=== PATIENT | male | born 1985 | race Caucasian/White ===

== ENCOUNTER 2017-07-07 21:29 | Inpatient (IN) | payer OTHER ==
[~2017-07-07] VITALS: Ht 182.8 cm; Wt 86.4 kg
--- NOTE | ~2017-07-07 | PR ---
[place], [place] PROGRESS NOTE NAME: WILIAN MAXWELL UNIT #: [id number] ROOM: 511 DOCTOR: TOBY WRIGHT MD,GERONIMO BIRTHDATE: [birth year] DOS: 07/09/2017 SUBJECTIVE: He has been noted comfortable at this time, sitting on the chair, noted fully awake and alert. Denies symptoms of chest pain or any hemoptysis. OBJECTIVE: VITAL SIGNS: For the patient, which has been recorded showed the temperature noted as normal. The respiratory rate of the patient was recorded as 20, heart rate of 125, and blood pressure 130/61. HEENT: Examination shows head was atraumatic. Eyes nonicterus. NECK: Supple. CARDIOVASCULAR: S1, S2 is audible. LUNGS: Noted with free of any wheezing or crackles. ABDOMEN: Soft and nontender. EXTREMITIES: Without any acute edema. IMPRESSION: The patient who has been currently noted with sinus tachycardia related to drug withdrawal, the reasons unknown. Resolution of acute exacerbation of bronchial asthma has been noted. Possible chronic obstructive pulmonary disease as well. PLAN OF MANAGEMENT: A 6-minute walk test performed to assess the patient need of home oxygen. Consider possible home discharge and followup by the primary head of quality. GERONIMO LUIS MD CM:PNTRANS [id number] GERONIMO WRIGHT MD 07/09/172033 interface
--- NOTE | ~2017-07-07 | CON ---
[place], [place] REPORT OF CONSULTATION NAME: WILIAN MAXWELL UNIT #: [id number] ROOM: 511 DOCTOR: TOBY WRIGHT MDGERONIMO BIRTHDATE: [birth year] DOS: 07/08/2017 CONSULTATION REQUEST BY: Hospitalist service. REASON FOR CONSULTATION: For assessment of the current abnormal respiratory symptoms. HISTORY OF PRESENT ILLNESS: This is a 31-year-old white male patient who was admitted to the hospital under the hospitalist care on 07/07/2017. The history was noted quite limited for the patient and the patient did seem to have a very limited understanding the problem and poor historian in general. Some of the history was also reviewed of the patient, which were taken by the attending physician and the history component. However, this is a 31-year-old white male who has been presented to the Emergency Room and reported symptoms of having increased shortness of breath, which was occurring for the patient for the past 24 hours or longer. He stated that he has been overdoing his treatment and taking several ____ treatment to help resolve the symptoms. The symptoms did not improve, urging him to come to the hospital. The patient came into the hospital. The patient denies any symptoms of chest pain with that. He does have some cough, but there was no sputum expectoration, also reported some symptoms of wheezing. The patient stated that he has an oxygen machine, which was broken and not working for the past several days. He was denying any symptoms of hemoptysis or any chest pain. Remaining systems were reviewed, they were noted all negative. PAST MEDICAL HISTORY: 1. History of pulmonary embolism, not on any long-term anticoagulants at the present time. 2. History of obstructive sleep apnea disorder treated with the CPAP per patient. 3. General anxiety and depression. 4. History of chronic obstructive pulmonary disease was also reported by the patient. 5. History of hiatal hernia. PAST SURGICAL HISTORY 1. EGD and colonoscopy. 2. Excision of the skin of the hand. SOCIAL HISTORY: The patient stated he is single, not , has been known with history of tobacco use, pack of cigarettes per day, reported to the attending of admission for 10 years, but told me that he only smoked for 1 year of cigarettes. The patient has been noted with occasional recreational use of marijuana. The patient has been noted with dependency on pain medication, Vicodin, currently taking Suboxone. 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 FAMILY HISTORY: Reported patient's father 56-year-old with history of diabetes mellitus type 2. Mother 44-year-old from complication related to the alcoholism. [place], [place] REPORT OF CONSULTATION NAME: WILIAN MAXWELL UNIT #: [id number] ROOM: 511 DOCTOR: GERONIMO [place] MD BIRTHDATE: [birth year] HOME MEDICATIONS: Reported with the patient use of amoxicillin, Xanax, albuterol, Suboxone, omeprazole, sertraline, nebulized bronchodilators as Albuterol sulfate. The patient also stated he has been previously taking the Asmanex twisthaler, but has not been taking the medication for the past several days as he ran out of the prescription. DRUG ALLERGY HISTORY: The patient was reported as no known drug allergies. PHYSICAL EXAMINATION: GENERAL: This is a 31-year-old white male who has been currently sitting on his bed without any acute distress at this time, using oxygen supplementation nasal cannula, has been previously treated with the BiPAP in the Emergency Room later on after admission. He has been comfortably resting. Height was recorded as 6 feet, weight of 190 pounds, BMI 25.8. VITAL SIGNS: Normal temperature, respiratory on admission, currently noted 20, heart rate 130-118 with sinus tachycardia, blood pressure 102/56-130/94. Pulse ox saturation on 3 liters cannula this morning was 97% saturation. HEENT: Head was atraumatic. Eyes nonicterus. NECK: Supple. CARDIOVASCULAR: S1, S2 is audible. LUNGS: Noted with moderate reduction of the breath sounds were noted in the lungs bilaterally. There was no active wheezing present at this time. There were no crackles. ABDOMEN: Soft, nontender. EXTREMITIES: Without any acute edema. SKIN: Visible skin. No areas of rashes or lesions. CENTRAL NERVOUS SYSTEM: Cranial nerves II-XII intact. SKIN: No focal deficit. MUSCULOSKELETAL: No gross deformities. LABORATORY DATA: CBC yesterday, WBC count 10.7, hemoglobin 13, hematocrit was normal. Platelet count normal, 13.3% eosinophils were noted. The pH was noted 7.19, pCO2 of 61.7, pO2 of 109 on 70% oxygen with the use of the BiPAP. Arterial blood gas that was done subsequently at midnight for the patient, pH of 7.31, pCO2 of 54, pO2 of 72.6 on 3 liter nasal cannula. Lactic acid was 5.8, follow up 2.6 and variably elevated at different levels. Troponin for this patient, which was done yesterday and this morning all noted as normal. Urine drug screen positive for the benzodiazepines. PT/PTT normal this morning. CBC this morning, hemoglobin 11.3, hematocrit 39.0, WBC count and platelet count normal. CMP of the patient with glucose 156, BUN normal, creatinine was normal. The chest x-ray of the patient that was done on admission was reviewed one-view, does not show any active cardiopulmonary disease. Mild hyperinflation was noted. CTA of the chest was also reviewed for the patient personally, it does not show any evidence of pulmonary embolism. There was no pulmonary infiltration noted, abnormal pulmonary nodules or changes of centrilobular emphysema. IMPRESSION: 1. The patient who has been currently admitted to the hospital noted with acute [place], [place] REPORT OF CONSULTATION NAME: WILIAN MAXWELL UNIT #: [id number] ROOM: 511 DOCTOR: TOBY WRIGHT MD,[facility] BIRTHDATE: [birth year] hypercapnic respiratory failure with possibility of hypoxia as well. 2. Presumed history of past chronic hypoxic respiratory failure, use of oxygen supplementation per patient. 3. Obstructive sleep apnea disorder. 4. Past history of tobacco use. 5. Presumed history of chronic obstructive pulmonary disease. 6. Eosinophilia, most likely related to bronchial asthma than chronic obstructive pulmonary disease exacerbation is very likely. There was no evidence of acute pneumonia noted radiologically. Possibility of viral bronchitis for the patient may be causing exacerbation or other allergies causing exacerbation of bronchial asthma would be considered. PLAN OF THERAPY: The patient would be continued on the corticosteroids. Also, he continued use the BiPAP, hypercapnic respiratory failure at nighttime and p.r.n. during the day. Oxygen supplementation to maintain a pulse ox saturation 92% or greater. Monitor labs closely. Bronchodilators to be continued as well for this patient every 4 hours. Monitor the progression of the respiratory status of the patient closely. At this time, no major change in treatment needs to be done whatever has been started for this patient at this time. All the medication seems to be effective and resolving. The pulmonary symptoms and exacerbation of bronchial asthma. Other supportive therapy, plan of management to be continued. Additional treatment changes will be ordered for the patient based on the progression of the illness. GERONIMO LUIS MD CM:CONSTR:REPORT OF CONSULTATION 1455 07/09/17 0137 interface
--- NOTE | ~2017-07-07 | EKG ---
[place], [place] ELECTROCARDIOGRAM REPORT NAME: WILIAN MAXWELL UNIT #: [id number] ROOM: 511 DOCTOR: TOBY WRIGHT MD,GERONIMO BIRTHDATE: [birth year] DOS: 07/09/2017 Electrocardiogram shows sinus tachycardia with heart rate of 125 beats per minute. GERONIMO LUIS MD CM:EKGRPT:ELECTROCARDIOGRAM REPORT [id number] GERONIMO WRIGHT MD
[~2017-07-07 21:29] MED LIST: AMOXICILLIN500 MG PO; AUGMENTIN 875 M1 TAB PO; CATAFLAM50 MG PO; CLEOCIN150 MG PO; DICLOFENAC POTA50 MG PO; HYDROCODONE BIT1 T11 PO; MOTRIN800 MG PO; PEN-VEE K500 MG PO; SUDAFED60 M1 PO; XANAX0.5 MG PO
[2017-07-07 21:33] VITALS: BP 130/94
[2017-07-07 21:53] LABS: ABG HCO3 23.3 mmol/l (22-26); ABG O2 SATURATION 99.5 % (95-97); ARTERIAL BLOOD GAS PCO2 61.7 mmHg (35-45); ARTERIAL BLOOD GAS PH 7.199 (7.35-7.45)
[2017-07-07 21:53] LABS: BASO # 0.1 10*3/uL (0.0-0.1); BASO % 1.3 % (0.0-1.0); EOS # 1.4 10*3/uL (0.0-0.4); EOS % 13.3 % (1.0-4.0); HEMATOCRIT 44.6 % (42.0-52.0); LYMPH # 4.5 10*3/uL (1.3-4.4); LYMPH % 41.7 % (27.0-41.0); MEAN CELL VOLUME 83.8 fl (80.0-94.0); MEAN CORPUSCULAR HGB 24.4 pg (27.0-31.0); MEAN CORPUSCULAR HGB CONC 29.1 g/dl (33.0-37.0); MEAN PLATELET VOLUME 10.1 fl (9.6-12.3); MONO # 0.9 10*3/uL (0.1-1.0); NEUT # 3.8 10*3/uL (2.3-7.9); NEUT % 35.2 % (47.0-73.0); PLATELET COUNT AUTOMATED 388 10*3/uL (130-400); RED BLOOD COUNT 5.32 10*6/uL (4.50-5.90); RED CELL DISTRI WIDTH 13.8 % (0-14.5); WHITE BLOOD COUNT 10.7 10*3/uL (4.8-10.8)
[2017-07-07 21:54] LABS: ABG BASE EXCESS -5.3 mmol/L (-2.0-2.0)
[2017-07-07 22:14] LABS: ALBUMIN 3.9 gm/dl (3.1-4.5); ALKALINE PHOSPHATASE 57 U/L (45-117); BUN 16 mg/dl (7-24); CHLORIDE 101 mmol/L (98-107); CREATININE 1.07 mg/dL (0.70-1.30); POTASSIUM 4.2 mmol/L (3.5-5.1); SGOT/AST 13 IU/L (3-35); SGPT/ALT 15 U/L (12-78); SODIUM 141 mmol/L (136-145); TOTAL PROTEIN 7.5 gm/dL (6.4-8.2)
[2017-07-07 22:27] VITALS: BP 104/71
[2017-07-07] MEDS ORDERED: ZOLOFT100 MG PO (22:41)
[2017-07-07] MEDS ORDERED: BUPRENORPHINE HY8 MG PO (22:43)
[2017-07-07] MEDS ORDERED: OMEPRAZOLE D/R20 MG PO (22:45)
[2017-07-07] MEDS ORDERED: PROVENTIL HFA6.7 GM INH (22:46)
[2017-07-07 23:10] VITALS: BP 114/62
[2017-07-08 00:56] LABS: ABG BASE EXCESS 0.2 mmol/L (-2.0-2.0); ABG HCO3 26.5 mmol/l (22-26); ABG O2 SATURATION 93.1 % (95-97); ARTERIAL BLOOD GAS PCO2 54.3 mmHg (35-45); ARTERIAL BLOOD GAS PH 7.31 (7.35-7.45); ARTERIAL BLOOD GAS PO2 72.6 mmHg (80-90)
[2017-07-08 03:28] LABS: BILIRUBIN NEGATIVE (NEGATIVE); BLOOD NEGATIVE (NEGATIVE); CLARITY CLEAR (CLEAR); COLOR YELLOW (YELLOW); GLUCOSE NEGATIVE (NEGATIVE); KETONE NEGATIVE (NEGATIVE); LEUKO ESTERASE NEGATIVE (NEGATIVE); NITRITE NEGATIVE (NEGATIVE); PH 5.5 (5.0-9.0); SPECIFIC GRAVITY >= 1.030 (1.005-1.030); UROBILINOGEN 0.2 E.U./dl (0.2-1.0)
[2017-07-08 03:37] LABS: URINE AMPHETAMINES < 1000 (1000ng/ml); URINE BARBITURATES < 200 (200ng/ml); URINE BENZODIAZEPINES > 200 (200ng/ml); URINE CANNABINOIDS (THC) < 50 (50ng/ml); URINE COCAINE < 300 (300ng/ml); URINE METHADONE < 300 (300ng/ml); URINE OPIATES < 300 (300ng/ml)
[2017-07-08 03:41] LABS: URINE PHENCYCLIDINE < 25 (25ng/ml)
[2017-07-08 03:53] LABS: BACTERIA TRACE
[2017-07-08 06:39] LABS: BASO % 0.2 % (0.0-1.0); EOS % 0.3 % (1.0-4.0); HEMOGLOBIN 11.3 g/dl (14.0-18.0); LYMPH # 0.9 10*3/uL (1.3-4.4); LYMPH % 8.9 % (27.0-41.0); MEAN CELL VOLUME 83.2 fl (80.0-94.0); MEAN CORPUSCULAR HGB 24.1 pg (27.0-31.0); MEAN PLATELET VOLUME 10.4 fl (9.6-12.3); MONO # 0.1 10*3/uL (0.1-1.0); MONO % 0.5 % (3.0-9.0); NEUT # 9.5 10*3/uL (2.3-7.9); NEUT % 89.6 % (47.0-73.0); PLATELET COUNT AUTOMATED 324 10*3/uL (130-400); RED BLOOD COUNT 4.69 10*6/uL (4.50-5.90); RED CELL DISTRI WIDTH 14.3 % (0-14.5); WHITE BLOOD COUNT 10.6 10*3/uL (4.8-10.8)
[2017-07-08 06:57] LABS: ALBUMIN 3.5 gm/dl (3.1-4.5); ALKALINE PHOSPHATASE 48 U/L (45-117); BUN 13 mg/dl (7-24); CHLORIDE 102 mmol/L (98-107); CHOLESTEROL 133 mg/dL (<200); CREATININE 1.21 mg/dL (0.70-1.30); HDL CHOLESTEROL 32 mg/dl (40-60); LDL CHOLESTEROL 89 mg/dL (9-159); PHOSPHOROUS 1.3 mg/dL (2.5-4.9); POTASSIUM 4.2 mmol/L (3.5-5.1); SGPT/ALT 15 U/L (12-78); SODIUM 138 mmol/L (136-145); TOTAL PROTEIN 7.2 gm/dL (6.4-8.2); TRIGLYCERIDES 59 mg/dl (<150); VLDL CHOLESTEROL 12 mg/dL (6-40)
[2017-07-08 07:03] LABS: THYROID STIM HORMONE (HS) 0.487 uIU/ml (0.358-4.75)
[2017-07-08 07:04] LABS: SGOT/AST 8 IU/L (3-35)
[2017-07-08 08:00] VITALS: BP 103/61
[2017-07-08 09:04] LABS: VITAMIN D, 25-HYDROXY 20.2 ng/mL (30-100)
[2017-07-08 12:00] VITALS: BP 102/56
[2017-07-08 16:00] VITALS: BP 111/64
[2017-07-08 20:00] VITALS: BP 116/74
[2017-07-09] VITALS: BP 102/56
[2017-07-09 06:12] LABS: BASO % 0.1 % (0.0-1.0); HEMATOCRIT 35.1 % (42.0-52.0); HEMOGLOBIN 10.5 g/dl (14.0-18.0); LYMPH % 8.9 % (27.0-41.0); MEAN CORPUSCULAR HGB 24.5 pg (27.0-31.0); MEAN CORPUSCULAR HGB CONC 29.9 g/dl (33.0-37.0); MEAN PLATELET VOLUME 10.4 fl (9.6-12.3); MONO % 4.4 % (3.0-9.0); NEUT # 19.1 10*3/uL (2.3-7.9); NEUT % 85.8 % (47.0-73.0); PLATELET COUNT AUTOMATED 355 10*3/uL (130-400); RED BLOOD COUNT 4.28 10*6/uL (4.50-5.90); RED CELL DISTRI WIDTH 14.6 % (0-14.5); WHITE BLOOD COUNT 22.3 10*3/uL (4.8-10.8)
[2017-07-09 06:43] LABS: ALBUMIN 3.5 gm/dl (3.1-4.5); CHLORIDE 107 mmol/L (98-107); POTASSIUM 4.9 mmol/L (3.5-5.1); SODIUM 141 mmol/L (136-145)
[2017-07-09 06:49] LABS: ALKALINE PHOSPHATASE 44 U/L (45-117); BUN 15 mg/dl (7-24); CREATININE 0.74 mg/dL (0.70-1.30); SGOT/AST 7 IU/L (3-35); SGPT/ALT 14 U/L (12-78); TOTAL PROTEIN 6.9 gm/dL (6.4-8.2)
[2017-07-09 08:00] VITALS: BP 107/59
[2017-07-09] MEDS ORDERED: VITAMIN D-32000 UNI1 PO (11:54)
[2017-07-09] MEDS ORDERED: DOXYCYCLINE100 M3 PO (11:54)
[2017-07-09] MEDS ORDERED: PREDNISONE10 MG PO (11:54)
[2017-07-09] MEDS ORDERED: VITAMIN D5000 UNI1 PO (11:59)
[2017-07-09 12:00] VITALS: BP 103/61
== END 2017-07-09 13:18 | disposition home or self-care (01) | DRG 871 ==
LOC: ED 21:29 → 5E 22:43
PROVIDERS: Emergency Medicine Emergency Medical Services; Internal Medicine; Internal Medicine Nephrology
PROC: 5A09357 Assistance with Respiratory Ventilation, Less than 24 Consecutive Hours, Continuous Positive Airway Pressure (ICD-10-PCS; principal; 2017-07-07)
DX: A41.9 Sepsis, unspecified organism (principal); J18.9 Pneumonia, unspecified organism; J96.01 Acute respiratory failure with hypoxia; E87.2 Acidosis; J96.02 Acute respiratory failure with hypercapnia; J44.0 Chronic obstructive pulmonary disease with (acute) lower respiratory infection; E83.41 Hypermagnesemia; J45.901 Unspecified asthma with (acute) exacerbation; J44.1 Chronic obstructive pulmonary disease with (acute) exacerbation; J98.11 Atelectasis; R65.20 Severe sepsis without septic shock; G47.33 Obstructive sleep apnea (adult) (pediatric); F32.9 Major depressive disorder, single episode, unspecified; D72.9 Disorder of white blood cells, unspecified; D72.810 Lymphocytopenia; D72.818 Other decreased white blood cell count; R73.9 Hyperglycemia, unspecified; E66.3 Overweight; K44.9 Diaphragmatic hernia without obstruction or gangrene; F41.1 Generalized anxiety disorder; D64.9 Anemia, unspecified; Z83.3 Family history of diabetes mellitus; Z81.1 Family history of alcohol abuse and dependence; Z99.81 Dependence on supplemental oxygen; Z86.711 Personal history of pulmonary embolism; Z87.891 Personal history of nicotine dependence; Z79.899 Other long term (current) drug therapy; Z86.718 Personal history of other venous thrombosis and embolism; Z68.25 Body mass index [BMI] 25.0-25.9, adult

== ENCOUNTER 2017-09-02 10:35 | Emergency (ER) | payer OTHER ==
[~2017-09-02] VITALS: Wt 86.2 kg
[~2017-09-02 10:35] MED LIST changes: +BUPRENORPHINE HY8 MG PO; +DOXYCYCLINE100 M3 PO; +OMEPRAZOLE D/R20 MG PO; +PREDNISONE10 MG PO; +PROVENTIL HFA6.7 GM INH; +VITAMIN D-32000 UNI1 PO; +VITAMIN D5000 UNI1 PO; +ZOLOFT100 MG PO
[2017-09-02 10:43] LABS: HEMOGLOBIN 11.3 g/dl (14.0-18.0); MEAN CELL VOLUME 81.1 fl (80.0-94.0); MEAN CORPUSCULAR HGB 23.5 pg (27.0-31.0); MEAN PLATELET VOLUME 9.9 fl (9.6-12.3); PLATELET COUNT AUTOMATED 374 10*3/uL (130-400); RED BLOOD COUNT 4.81 10*6/uL (4.50-5.90); RED CELL DISTRI WIDTH 15.1 % (0-14.5); WHITE BLOOD COUNT 9.7 10*3/uL (4.8-10.8)
[2017-09-02 10:59] LABS: ALBUMIN 4.1 gm/dl (3.1-4.5); ALKALINE PHOSPHATASE 51 U/L (45-117); BUN 12 mg/dl (7-24); CHLORIDE 105 mmol/L (98-107); CREATININE 0.95 mg/dL (0.70-1.30); POTASSIUM 4.2 mmol/L (3.5-5.1); SGOT/AST 13 IU/L (3-35); SGPT/ALT 16 U/L (12-78); SODIUM 141 mmol/L (136-145); TOTAL PROTEIN 7.5 gm/dL (6.4-8.2)
[2017-09-02 11:07] LABS: BASOPHILS 3 % (0-1); PLATELET SUFFICIENCY NORMAL (NORMAL); TOTAL CELLS COUNTED 100 #CELLS
[2017-09-02] MEDS ORDERED: DUONEB 3 MG/3 ML3 M1 INH (13:00)
== END 2017-09-02 13:57 | disposition home or self-care (01) ==
LOC: ED 10:35
PROVIDERS: Emergency Medicine
DX: J45.909 Unspecified asthma, uncomplicated (principal); J44.9 Chronic obstructive pulmonary disease, unspecified; Z79.899 Other long term (current) drug therapy; Z87.891 Personal history of nicotine dependence

== ENCOUNTER 2019-01-05 10:33 | Emergency (ER) | payer OTHER ==
[~2019-01-05] VITALS: Ht 180.3 cm; Wt 76.2 kg
--- NOTE | ~2019-01-05 | EKG ---
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
--- NOTE | ~2019-01-05 | EKG ---
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
[~2019-01-05 10:33] MED LIST changes: +DUONEB 3 MG/3 ML3 M1 INH
[2019-01-05 10:58] LABS: HEMATOCRIT 38.9 % (42.0-52.0); HEMOGLOBIN 10.6 g/dl (14.0-18.0); MEAN CELL VOLUME 74.7 fl (80.0-94.0); MEAN CORPUSCULAR HGB 20.3 pg (27.0-31.0); MEAN CORPUSCULAR HGB CONC 27.2 g/dl (33.0-37.0); PLATELET COUNT AUTOMATED 227 10*3/uL (130-400); RED BLOOD COUNT 5.21 10*6/uL (4.50-5.90)
[2019-01-05 11:00] LABS: ACT PARTIAL THROMBO TIME 20.2 SECONDS (20.0-32.1); INTERNATIONAL NORM RATIO 1.1 (2.0-3.5)
[2019-01-05 11:12] LABS: ALBUMIN 4.2 gm/dl (3.1-4.5); ALKALINE PHOSPHATASE 65 U/L (45-117); BASOPHILS 3 % (0-1); BUN 8 mg/dl (7-24); CHLORIDE 104 mmol/L (98-107); CREATININE 1.05 mg/dL (0.70-1.30); POTASSIUM 4.1 mmol/L (3.5-5.1); SGOT/AST 16 IU/L (3-35); SGPT/ALT 19 U/L (12-78); SODIUM 139 mmol/L (136-145); TOTAL CELLS COUNTED 100 #CELLS; TOTAL PROTEIN 7.9 gm/dL (6.4-8.2)
[2019-01-05 11:13] LABS: MICROCYTOSIS MODERATE; PLATELET SUFFICIENCY NORMAL (NORMAL); POLYCHROMASIA SLIGHT; SCHISTOCYTES FEW
[2019-01-05 11:15] LABS: OVALOCYTES MODERATE
[2019-01-05 11:16] LABS: TROPONIN I < 0.015 ng/ml (<0.045)
[2019-01-05 11:31] LABS: ABG BASE EXCESS 2.7 mmol/L (-2.0-2.0); ABG HCO3 28.1 mmol/l (22-26); ABG O2 SATURATION 91.7 % (95-97); ARTERIAL BLOOD GAS PCO2 49.1 mmHg (35-45); ARTERIAL BLOOD GAS PH 7.372 (7.35-7.45); ARTERIAL BLOOD GAS PO2 59.4 mmHg (80-90)
[2019-01-05] MEDS ORDERED: Ipratropium Brom3 ML INH (13:58)
[2019-01-05] MEDS ORDERED: MEDROL DOSEPAK4 MG PO (14:04)
== END 2019-01-05 14:13 | disposition home or self-care (01) ==
LOC: ED 10:33
PROVIDERS: Emergency Medicine
DX: J45.901 Unspecified asthma with (acute) exacerbation (principal); Z87.891 Personal history of nicotine dependence; Z79.899 Other long term (current) drug therapy; Z86.711 Personal history of pulmonary embolism

== ENCOUNTER 2019-03-14 12:10 | Inpatient (IN) | payer OTHER ==
[2019-03-14] VITALS (10 sets, daily range): BP systolic 101–145; BP diastolic 58–90
[~2019-03-14] VITALS: Ht 182.9 cm; Wt 74.6 kg
[~2019-03-14 12:10] MED LIST changes: +Ipratropium Brom3 ML INH; +MEDROL DOSEPAK4 MG PO
[2019-03-14 12:36] LABS: BASO # 0.1 10*3/uL (0.0-0.1); BASO % 0.8 % (0.0-1.0); EOS # 1.6 10*3/uL (0.0-0.4); HEMATOCRIT 49.7 % (42.0-52.0); HEMOGLOBIN 14.9 g/dl (14.0-18.0); LYMPH # 2.7 10*3/uL (1.3-4.4); LYMPH % 15.3 % (27.0-41.0); MEAN CELL VOLUME 90.7 fl (80.0-94.0); MEAN CORPUSCULAR HGB 27.2 pg (27.0-31.0); MEAN PLATELET VOLUME 9.1 fl (9.6-12.3); MONO # 1.2 10*3/uL (0.1-1.0); MONO % 7.1 % (3.0-9.0); NEUT # 11.7 10*3/uL (2.3-7.9); NEUT % 67.4 % (47.0-73.0); PLATELET COUNT AUTOMATED 351 10*3/uL (130-400); RED BLOOD COUNT 5.48 10*6/uL (4.50-5.90); RED CELL DISTRI WIDTH 16.8 % (0-14.5); WHITE BLOOD COUNT 17.4 10*3/uL (4.8-10.8)
[2019-03-14 12:43] LABS: ABG BASE EXCESS 1.5 mmol/L (-2.0-2.0)
[2019-03-14 12:48] LABS: ARTERIAL BLOOD GAS PH 7.154 (7.35-7.45)
--- NOTE | 2019-03-14 12:50 | NUR ---
PT WAS ORALLY INTUBATED WITH A 7.5 FR ENDO TUBE,TUBE IS 24CM AT THE LIP. RATE IS 14,TIDAL VOLUME 500,PEEP OF 5,100% O2
[2019-03-14 12:53] LABS: ACT PARTIAL THROMBO TIME 27.5 SECONDS (20.0-32.1)
[2019-03-14 12:54] LABS: ALBUMIN 4.2 gm/dl (3.1-4.5); ALKALINE PHOSPHATASE 43 U/L (45-117); BUN 20 mg/dl (7-24); CHLORIDE 105 mmol/L (98-107); CREATININE 0.83 mg/dL (0.70-1.30); POTASSIUM 3.9 mmol/L (3.5-5.1); SGOT/AST 20 IU/L (3-35); SGPT/ALT 26 U/L (12-78); SODIUM 142 mmol/L (136-145); TOTAL PROTEIN 7.7 gm/dL (6.4-8.2)
[2019-03-14 12:57] LABS: TROPONIN I < 0.015 ng/ml (<0.045)
--- NOTE | 2019-03-14 13:20 | NUR ---
PATIENT INTUBATED WITH A SIZE 7.5 ETT, 24 CM AT LIP. VT 500, CMV 14, FIO2 100, PEEP +5. HR 109, PULSE OX 100%.
[2019-03-14 14:07] LABS: BILIRUBIN NEGATIVE (NEGATIVE); BLOOD 2+ (NEGATIVE); CLARITY CLEAR (CLEAR); COLOR YELLOW (YELLOW); GLUCOSE NEGATIVE (NEGATIVE); KETONE NEGATIVE (NEGATIVE); LEUKO ESTERASE NEGATIVE (NEGATIVE); NITRITE NEGATIVE (NEGATIVE); SPECIFIC GRAVITY >= 1.030 (1.005-1.030); UROBILINOGEN 0.2 E.U./dl (0.2-1.0)
[2019-03-14 14:14] LABS: MUCOUS 1+; URINE AMPHETAMINES > 1000 (1000ng/ml); URINE BARBITURATES < 200 (200ng/ml); URINE BENZODIAZEPINES > 200 (200ng/ml); URINE CANNABINOIDS (THC) < 50 (50ng/ml); URINE COCAINE > 300 (300ng/ml); URINE METHADONE < 300 (300ng/ml); URINE OPIATES < 300 (300ng/ml)
[2019-03-14 14:17] LABS: URINE PHENCYCLIDINE < 25 (25ng/ml)
--- NOTE | 2019-03-14 14:20 | NUR ---
A 33, admitted to ICCU, under the services of ELIZABETH Neff DO with a diagnosis of ACUTE RESPIRATORY FAILURE WITH HYPOXIA AND HYPERCAPNIA, ASTHMA WITH STATUS ASTHMATICUS IN ADULT. Chief complaint is SHORTNESS OF BREATH. Patient arrived via stretcher from ER. Monitor applied. Initial assessment completed. Vital signs taken and recorded. ELIZABETH NEFF DO notified of admission to the unit. Orders received. See assessment for past medical history, medications and allergies. Patient and/or family oriented to unit. [facility] visitation policy reviewed. Clothing/patient valuable form completed. SYLVESTER ASTORGA
[2019-03-14 14:50] LABS: ABG BASE EXCESS 0.5 mmol/L (-2.0-2.0); ARTERIAL BLOOD GAS PH 7.2 (7.35-7.45)
[2019-03-14] MEDS ORDERED: PROTONIX40 MG PO (14:58)
[2019-03-14] MEDS ORDERED: NEURONTIN300 MG PO (14:59)
[2019-03-14] MEDS ORDERED: Ipratropium Brom3 ML INH (14:59)
--- NOTE | 2019-03-14 15:40 | NUR ---
NOTIFIED OF NEW CONSULT ORDER.
[2019-03-14 18:07] LABS: ABG BASE EXCESS 1.1 mmol/L (-2.0-2.0); ARTERIAL BLOOD GAS PH 7.328 (7.35-7.45)
--- NOTE | 2019-03-14 20:19 | NUR ---
1900- [address] FOR CTA. TOLERATED FAIR. 194 RESTING IN BED IN SUPINE POSITION. HOB ELEVATED. ET SECURE TO VENT. SUCTIONED ORALLY AND VIA ET. SEE INTERVENTION SCREEN. PULSE OX 96% ON 45% FIO2. OGT INTACT AND CLAMPED. WRIST RESTRAINTS INTACT BILATERALLY. CIRCULATION ADEQUATE. FARFAN PATENT AND DRAINING CLEAR YELLOW URINE. DIPRIVAN MAINTAINED FOR SEDATION. HEP LOCK INTACT. NO DISTRESS NOTED. EARLIER VERSED EFFECTIVE.
--- NOTE | 2019-03-14 21:44 | NUR ---
2119 VERSED IV FOR AGITATION. COMPLETE BED BATH GIVEN AND LINENS CHANGED, 2141 DIPRIVAN INCREASED TO 50MICS. MORPHINE 2MG IV FOR AGITATION. WILL MONITOR.
--- NOTE | 2019-03-14 22:12 | NUR ---
EARLIER MEDS EFFECTIVE. RESTING IN BED WITH EYES CLOSED.
[2019-03-15] VITALS (7 sets, daily range): BP systolic 105–130; BP diastolic 52–72
--- NOTE | 2019-03-15 00:26 | NUR ---
REMAINS ADEQUATELY SEDATED ON DIPRIVAN. ET SECURE TO VENT. PULSE OX 96%. NO DISTRESS NOTED.
--- NOTE | 2019-03-15 00:42 | NUR ---
0040 RESTLESS AND TRYING TO SIT UP IN THE BED. VERSED IV FOR THIS.
--- NOTE | 2019-03-15 02:14 | NUR ---
EARLIER VERSED EFFECTIVE.
--- NOTE | 2019-03-15 04:48 | NUR ---
0440 RESTLESS AND HITTING AT SIDE RAILS. VERSED 5MG IV. ONLY SL EFFECTIVE. DIPRIVAN CONT AT 50MICS.
[2019-03-15 05:32] LABS: ALBUMIN 3.6 gm/dl (3.1-4.5); ALKALINE PHOSPHATASE 39 U/L (45-117); BUN 14 mg/dl (7-24); CHLORIDE 108 mmol/L (98-107); CHOLESTEROL 163 mg/dL (<200); CREATININE 0.69 mg/dL (0.70-1.30); FREE T4 1.02 ng/dl (0.76-1.46); HDL CHOLESTEROL 47 mg/dl (40-60); LDL CHOLESTEROL 107 mg/dL (9-159); PHOSPHOROUS 3.1 mg/dL (2.5-4.9); POTASSIUM 4.6 mmol/L (3.5-5.1); SGOT/AST 11 IU/L (3-35); SGPT/ALT 24 U/L (12-78); SODIUM 141 mmol/L (136-145); TRIGLYCERIDES 43 mg/dl (<150); VLDL CHOLESTEROL 9 mg/dL (6-40)
[2019-03-15 05:35] LABS: THYROID STIM HORMONE (HS) 0.483 uIU/ml (0.358-4.75); TOTAL PROTEIN 6.9 gm/dL (6.4-8.2)
--- NOTE | 2019-03-15 05:36 | NUR ---
0515 CONT TO HIT ON SIDE RAILS. ATTEMPTED TO HAVE PT WRITE NOTE-UNABLE. MORPHINE 2MG IV FOR CONT RESTLESSNESS. WILL MONITOR. 0530 REMAINS RESTLESS.
--- NOTE | 2019-03-15 06:07 | NUR ---
EARLIER MEDS FINALLY EFFECTIVE. ET SECURE TO VENT. DIPRIVAN CONT. HEP LOCK INTACT. ADOLPH PATENT. CONDITION GUARDED.
[2019-03-15 06:13] LABS: HEMATOCRIT 43.9 % (42.0-52.0); LYMPH # 0.7 10*3/uL (1.3-4.4); MEAN CELL VOLUME 90.1 fl (80.0-94.0); MEAN CORPUSCULAR HGB 26.7 pg (27.0-31.0); MEAN CORPUSCULAR HGB CONC 29.6 g/dl (33.0-37.0); MEAN PLATELET VOLUME 10.2 fl (9.6-12.3); MONO # 0.1 10*3/uL (0.1-1.0); MONO % 1.2 % (3.0-9.0); NEUT # 6.8 10*3/uL (2.3-7.9); NEUT % 89.5 % (47.0-73.0); PLATELET COUNT AUTOMATED 325 10*3/uL (130-400); RED BLOOD COUNT 4.87 10*6/uL (4.50-5.90); RED CELL DISTRI WIDTH 16.7 % (0-14.5); WHITE BLOOD COUNT 7.6 10*3/uL (4.8-10.8)
--- NOTE | 2019-03-15 07:11 | NUR ---
PATIENT MEDICATED WITH VERSED PER PRN ORDER. PATIENT VERY AGITATED. PULLING AT WRIST RESTRAINTS. ATTEMPTING TO SIT UP. PATIENT WANTING TO WRITE TO COMMUNICATE WITH STAFF. RN ATTEMPTED TO LET PATIENT WRITE. PATIENT WOULD JUST SCRIBBLE. UNABLE TO UNDERSTAND. ATTEMPTS STOPPED AT THIS TIME.
[2019-03-15 07:29] LABS: ABG BASE EXCESS 0.5 mmol/L (-2.0-2.0); ARTERIAL BLOOD GAS PH 7.361 (7.35-7.45)
--- NOTE | 2019-03-15 08:14 | NUR ---
PATIENT CONTINUES TO BE AGITATED. MEDICATED WITH VERSED PER PRN ORDER. WILL CONTINUE TO MONITOR.
--- NOTE | 2019-03-15 10:42 | NUR ---
PATIENT EXTUBATED TO A NASAL CANNULA AT 4 LPM. INOCENCIA WELL NO STRIDOR AND ABLE TO GENERATE AN EFFECTIVE COUGH. TALKING VERY WELL, NURSE AWARE.
--- NOTE | 2019-03-15 11:58 | NUR ---
Refinery Operator Assistant in to talk to patient. Patient states lives at HOME with FATHER. There are NO steps in the home. Physician: RONNI Pharmacy: Home health services: NONE Patient's level of ADLs: INDEPENDENT Patient has working utilities: YES DME: O2, C PAP, NEBULIZER, DOES NOT KNOW NAME OF COMPANY Follow-up physician's appointment after d/c: WILL BE MADE BY HOSPITALIST NURSE DIRECTOR ON DISCR Does patient want to access PORTAL?: NO Discharge plan PT LIVES AT HOME WITH FATHER AND IS INDENDENT IN HIS CARE. STATES HE WILL RETURN HOME ON DISCHARGE WITH NO NEEDS. WILL CONTINUE TO FOLLOW. WILL HAVE A RIDE PER PT.. JULISSA HOANG
--- NOTE | 2019-03-15 16:25 | NUR ---
PATIENT LEFT AMA. IVS DISCONTINUED. FASHION ILLUSTRATOR DISCONTINUED.
== END 2019-03-15 19:13 | disposition left against medical advice (07) | DRG 871 ==
LOC: ED 12:10 → EDHOLD 13:34 → ICCU 13:34
PROVIDERS: Emergency Medicine; Hospitalist; Internal Medicine Critical Care Medicine; ADMIT Family Medicine
PROC: 5A1935Z Respiratory Ventilation, Less than 24 Consecutive Hours (ICD-10-PCS; principal; 2019-03-14)
PROC: 0BH17EZ Insertion of Endotracheal Airway into Trachea, Via Natural or Artificial Opening (ICD-10-PCS; principal; 2019-03-14)
DX: A41.9 Sepsis, unspecified organism (principal); J96.01 Acute respiratory failure with hypoxia; J96.02 Acute respiratory failure with hypercapnia; J18.9 Pneumonia, unspecified organism; J45.52 Severe persistent asthma with status asthmaticus; E87.3 Alkalosis; R65.20 Severe sepsis without septic shock; F14.10 Cocaine abuse, uncomplicated; F13.10 Sedative, hypnotic or anxiolytic abuse, uncomplicated; F41.9 Anxiety disorder, unspecified; F32.9 Major depressive disorder, single episode, unspecified; G47.33 Obstructive sleep apnea (adult) (pediatric); F15.10 Other stimulant abuse, uncomplicated; D64.9 Anemia, unspecified; E83.41 Hypermagnesemia; Z86.711 Personal history of pulmonary embolism; Z87.01 Personal history of pneumonia (recurrent); Z81.1 Family history of alcohol abuse and dependence; Z87.891 Personal history of nicotine dependence; Z83.3 Family history of diabetes mellitus; Z79.899 Other long term (current) drug therapy

== ENCOUNTER 2019-04-27 11:49 | Emergency (ER) | payer OTHER ==
[~2019-04-27] VITALS: Ht 182.8 cm; Wt 77.1 kg
[~2019-04-27 11:49] MED LIST changes: +NEURONTIN300 MG PO; +PROTONIX40 MG PO
[2019-04-27] MEDS ORDERED: IBUPROFEN600 MG PO (12:27)
[2019-04-27] MEDS ORDERED: DOXYCYCLINE100 M3 PO (12:27)
== END 2019-04-27 12:40 | disposition home or self-care (01) ==
LOC: ED 11:49
DX: L02.413 Cutaneous abscess of right upper limb (principal); L03.113 Cellulitis of right upper limb; Z79.899 Other long term (current) drug therapy; Z87.891 Personal history of nicotine dependence

== ENCOUNTER 2019-07-04 00:04 | Emergency (ER) | payer OTHER ==
[~2019-07-04] VITALS: Ht 182.8 cm; Wt 77.1 kg
[~2019-07-04 00:04] MED LIST changes: +IBUPROFEN600 MG PO
[2019-07-04] MEDS ORDERED: CEPHALEXIN500 M1 PO (00:40)
[2019-07-04] MEDS ORDERED: SEPTDS PO (00:40)
== END 2019-07-04 00:53 | disposition home or self-care (01) ==
LOC: ED 00:04
DX: L02.01 Cutaneous abscess of face (principal); J44.9 Chronic obstructive pulmonary disease, unspecified; Z79.899 Other long term (current) drug therapy; Z79.2 Long term (current) use of antibiotics; Z98.890 Other specified postprocedural states; Z87.891 Personal history of nicotine dependence

== ENCOUNTER 2019-10-26 16:59 | Emergency (ER) | payer OTHER ==
[~2019-10-26] VITALS: Ht 182.8 cm; Wt 79.4 kg
[~2019-10-26 16:59] MED LIST changes: +CEPHALEXIN500 M1 PO; +SEPTDS PO
[2019-10-26] MEDS ORDERED: Motrin,Rufen800 MG PO (17:13)
[2019-10-26] MEDS ORDERED: SEPTDS PO (17:13)
[2019-10-26] MEDS ORDERED: CEFADROXIL500 M1 PO (17:13)
== END 2019-10-26 17:25 | disposition home or self-care (01) ==
LOC: ED 16:59
DX: L02.818 Cutaneous abscess of other sites (principal); F32.9 Major depressive disorder, single episode, unspecified; J44.9 Chronic obstructive pulmonary disease, unspecified; F17.200 Nicotine dependence, unspecified, uncomplicated; Z79.899 Other long term (current) drug therapy

== ENCOUNTER 2019-12-18 17:27 | Emergency (ER) | payer OTHER ==
[~2019-12-18] VITALS: Ht 182.8 cm; Wt 81.6 kg
[~2019-12-18 17:27] MED LIST changes: +CEFADROXIL500 M1 PO; +Motrin,Rufen800 MG PO
[2019-12-18] MEDS ORDERED: DOXYCYCLINE100 M3 PO (21:29)
[2019-12-18] MEDS ORDERED: IBUPROFEN600 MG PO (21:29)
== END 2019-12-18 21:51 | disposition home or self-care (01) ==
LOC: ED 17:27
DX: L02.214 Cutaneous abscess of groin (principal); Z79.899 Other long term (current) drug therapy; Z87.891 Personal history of nicotine dependence